=== PATIENT | male | born 1985 | race Asian ===

== ENCOUNTER 2024-05-26 12:16 | Emergency (ER) | payer BC ==
[~2024-05-26] VITALS: Ht 180.3 cm; Wt 90.7 kg
[2024-05-26 12:52] VITALS: BP_SYST 151; PULSE 98; RESP 16; TEMP 97.4; O2SAT 97
[2024-05-26] MEDS: BACITRACIN 1 GM OINT TP ONE (13:26)
[2024-05-26] MEDS: LIDOCAINE 1% 10 MG/ML, 20 ML MDV INJ ONE (13:26)
[2024-05-26] MEDS: DIPHTH,PERTUSS(ACELL),TET VAC 0.5 ML VIAL (Tdap) I.M. ONE (13:36)
[2024-05-26 16:00] VITALS: BP_SYST 136; PULSE 78; RESP 18; TEMP 97.9; O2SAT 98
== END 2024-05-26 16:00 | disposition home or self-care (01) ==
LOC: SED 12:16
DX: S01.81XA Laceration without foreign body of other part of head, initial encounter (principal); V18.2XXA Unspecified pedal cyclist injured in noncollision transport accident in nontraffic accident, initial encounter; Y93.89 Activity, other specified; Y92.89 Other specified places as the place of occurrence of the external cause; Y99.8 Other external cause status
CPT/HCPCS: 90715; 99283